=== PATIENT | male | born 1990 | race Caucasian/White ===

== ENCOUNTER 2019-01-19 10:32 | Emergency (ER) | payer SELFPAY ==
[2019-01-19] MEDS ORDERED: Ondansetron 4 MG/2 ML SDV IVPUSH ONE (10:48)
[2019-01-19] MEDS ORDERED: Sodium Chloride 0.9% 10 ML Syringe FLUSH PRN (10:48)
[2019-01-19] MEDS ORDERED: Ketorolac 30 MG/ML SDV IVPUSH ONE (10:50)
[2019-01-19] MEDS ORDERED: HYDROmorphone 0.5 MG/0.5 ML Syringe IVPUSH ONE ×2 (10:50→13:25)
[2019-01-19] MEDS ORDERED: Sodium Chloride 0.9% 1,000 ML IV SCH (11:00)
--- NOTE | 2019-01-19 11:23 | EDM.PDOC ---
ED HPI GENERAL MEDICAL PROBLEM - General Chief Complaint: Genitourinary Problem Stated Complaint: KIDNEY INFECTION,URINATING BLOOD Time Seen by Provider: 01/19/19 10:37 Source of Information: Reports: Patient History Limitations: Reports: No Limitations - History of Present Illness INITIAL COMMENTS - FREE TEXT/NARRATIVE: The patient presents with dysuria and flank pain. He says he had some dysuria about a week. He took some azo and that did help but now he has pain after urinating. He has orange urine now. He also has left flank pain for a couple days. He has nausea but no vomiting. He has chills but no fever. He has a history of UTIs. He has no cough, chest pain or shortness of breath. The pain does radiate to his left abdomen. Onset: Gradual Duration: Day(s): Location: Reports: Back Quality: Reports: Sharp Severity: Moderate Improves with: Reports: None Worsens with: Reports: None Associated Symptoms: Reports: Fever/Chills, Nausea/Vomiting. Denies: Chest Pain , Cough, Headaches, Shortness of Breath Left Flank Pain Score (Numeric/FACES): 8 - Related Data Allergies Allergy/AdvReac Type Severity Reaction Status Date / Time No Known Allergies Allergy Verified 01/19/19 10:41 Home Meds: Home Meds Cephalexin [Keflex] 500 mg PO BID #20 capsule 01/19/19 [Rx] Hydrocodone/Acetaminophen [Hydrocodon-Acetaminophen 5-325] 1 - 2 each PO Q6HR PRN #20 tablet 01/19/19 [Rx] Past Medical History - Past Health History Medical/Surgical History: Denies Medical/Surgical History Genitourinary History: Reports: UTI, Recurrent Social & Family History - Family History Family Medical History: Noncontributory - Tobacco Use Smoking Status *Q: Current Every Day Smoker Years of Tobacco use: 7 Packs/Tins Daily: 0.5 - Caffeine Use Caffeine Use: Reports: Coffee - Recreational Drug Use Recreational Drug Use: No ED ROS GENERAL - Review of Systems Review Of Systems: See Below Constitutional: Reports: Chills. Denies: Fever HEENT: Reports: No Symptoms Respiratory: Reports: No Symptoms Cardiovascular: Reports: No Symptoms Endocrine: Reports: No Symptoms GI/Abdominal: Reports: Abdominal Pain, Nausea. Denies: Vomiting ED EXAM, RENAL/ - Physical Exam Exam: See Below Exam Limited By: No Limitations General Appearance: Alert, No Apparent Distress Ears: Normal External Exam Nose: Normal Inspection Head: Atraumatic, Normocephalic Neck: Normal Inspection Respiratory/Chest: No Respiratory Distress, Lungs Clear, Normal Breath Sounds Cardiovascular: Regular Rate, Rhythm, No Edema, No Murmur GI/Abdominal: Soft, No Organomegaly, No Mass, Tender (Mild tenderness to the left abdomen) Back Exam: No: CVA Tenderness (L) Course - Vital Signs Last Recorded V/S: Last Vital Signs Temp 97.4 F 01/19/19 10:36 Pulse 80 01/19/19 10:36 Resp 16 01/19/19 10:36 BP 130/73 01/19/19 10:36 Pulse Ox 99 01/19/19 10:36 - Orders/Labs/Meds Orders: Active Orders 24 hr Category Date Time Status Peripheral IV Care [RC] . DIRECTED Care 01/19/19 10:49 Active CULTURE URINE [RM] Stat Lab 01/19/19 10:55 Received Sodium Chloride 0.9% [Normal Saline] 1,000 ml Med 01/19/19 11:00 Active IV ASDIRECTED Sodium Chloride 0.9% [Saline Flush] Med 01/19/19 10:48 Active 10 ml FLUSH ASDIRECTED PRN ED Antiemetic Medication Reflex [OM.PC] Stat Oth 01/19/19 10:48 Ordered Peripheral IV Insertion Adult [OM.PC] Stat Oth 01/19/19 10:48 Ordered Medication Orders Sodium Chloride (Normal Saline) 1,000 mls @ 125 mls/hr IV ASDIRECTED GINNA Last Admin: 01/19/19 11:00 Dose: 125 mls/hr Sodium Chloride (Saline Flush) 10 ml FLUSH ASDIRECTED PRN PRN Reason: Keep Vein Open Last Admin: 01/19/19 11:01 Dose: 10 ml Labs: Laboratory Tests 01/19/19 01/19/19 01/19/19 Range/Units 10:55 10:55 10:55 WBC 16.20 H (4.23-9.07) K/mm3 RBC 5.64 (4.63-6.08) M/mm3 Hgb 16.8 (13.7-17.5) gm/dl Hct 46.9 (40.1-51.0) % MCV 83.2 (79.0-92.2) fl MCH 29.8 (25.7-32.2) pg MCHC 35.8 H (32.2-35.5) g/dl RDW Std Deviation 37.6 (35.1-43.9) fL Plt Count 117 L (163-337) K/mm3 MPV 11.1 (9.4-12.3) fl Neut % (Auto) 82.7 H (34.0-67.9) % Lymph % (Auto) 8.7 L (21.8-53.1) % [place] % (Auto) 8.4 (5.3-12.2) % Eos % (Auto) 0.1 L (0.8-7.0) Baso % (Auto) 0.1 (0.1-1.2) % Neut # (Auto) 13.41 H (1.78-5.38) K/mm3 Lymph # (Auto) 1.41 (1.32-3.57) K/mm3 [place] # (Auto) 1.36 H (0.30-0.82) K/mm3 Eos # (Auto) 0.01 L (0.04-0.54) K/mm3 Baso # (Auto) 0.01 (0.01-0.08) K/mm3 Manual Slide Review Abnormal smear Sodium 138 (136-145) mEq/L Potassium 3.9 (3.5-5.1) mEq/L Chloride 100 (98-107) mEq/L Carbon Dioxide 29 (21-32) mEq/L Anion Gap 12.9 (5-15) BUN 11 (7-18) mg/dL Creatinine 1.2 (0.7-1.3) mg/dL Est Cr Clr Drug Dosing 87.22 mL/min Estimated GFR (MDRD) > 60 (>60) mL/min BUN/Creatinine Ratio 9.2 L (14-18) Glucose 98 (74-106) mg/dL Calcium 9.9 (8.5-10.1) mg/dL Total Bilirubin 0.8 (0.2-1.0) mg/dL AST 9 L (15-37) U/L ALT 23 (16-63) U/L Alkaline Phosphatase 51 (46-116) U/L Total Protein 8.1 (6.4-8.2) g/dl Albumin 4.5 (3.4-5.0) g/dl Globulin 3.6 gm/dL Albumin/Globulin Ratio 1.3 (1-2) Lipase 69 L (73-393) U/L Urine Color [place] H (Yellow) Urine Appearance Slt cloudy H (Clear) Urine pH 5.0 (5.0-8.0) Ur Specific [place] 1.010 (1.005-1.030) Urine Protein 3+ H (Negative) Urine Glucose (UA) 1+ H (Negative) Urine Ketones 1+ H (Negative) Urine Occult Blood 1+ H (Negative) Urine Nitrite Positive H (Negative) Urine Bilirubin 2+ H (Negative) Urine Urobilinogen >=8.0 H (0.2-1.0) Ur Leukocyte Esterase 3+ H (Negative) Urine RBC 5-10 H (0-5) /hpf Urine WBC 40-50 H (0-5) /hpf Ur Epithelial Cells 0-5 (0-5) /hpf Urine Bacteria Few (FEW) /hpf Urine Mucus Few (FEW) /hpf C trachomatis DNA (PCR) N gonorrhoeae DNA (PCR) 01/19/19 Range/Units 10:55 WBC (4.23-9.07) K/mm3 RBC (4.63-6.08) M/mm3 Hgb (13.7-17.5) gm/dl Hct (40.1-51.0) % MCV (79.0-92.2) fl MCH (25.7-32.2) pg MCHC (32.2-35.5) g/dl RDW Std Deviation (35.1-43.9) fL Plt Count (163-337) K/mm3 MPV (9.4-12.3) fl Neut % (Auto) (34.0-67.9) % Lymph % (Auto) (21.8-53.1) % [place] % (Auto) (5.3-12.2) % Eos % (Auto) (0.8-7.0) Baso % (Auto) (0.1-1.2) % Neut # (Auto) (1.78-5.38) K/mm3 Lymph # (Auto) (1.32-3.57) K/mm3 [place] # (Auto) (0.30-0.82) K/mm3 Eos # (Auto) (0.04-0.54) K/mm3 Baso # (Auto) (0.01-0.08) K/mm3 Manual Slide Review Sodium (136-145) mEq/L Potassium (3.5-5.1) mEq/L Chloride (98-107) mEq/L Carbon Dioxide (21-32) mEq/L Anion Gap (5-15) BUN (7-18) mg/dL Creatinine (0.7-1.3) mg/dL Est Cr Clr Drug Dosing mL/min Estimated GFR (MDRD) (>60) mL/min BUN/Creatinine Ratio (14-18) Glucose (74-106) mg/dL Calcium (8.5-10.1) mg/dL Total Bilirubin (0.2-1.0) mg/dL AST (15-37) U/L ALT (16-63) U/L Alkaline Phosphatase (46-116) U/L Total Protein (6.4-8.2) g/dl Albumin (3.4-5.0) g/dl Globulin gm/dL Albumin/Globulin Ratio (1-2) Lipase (73-393) U/L Urine Color (Yellow) Urine Appearance (Clear) Urine pH (5.0-8.0) Ur Specific [place] (1.005-1.030) Urine Protein (Negative) Urine Glucose (UA) (Negative) Urine Ketones (Negative) Urine Occult Blood (Negative) Urine Nitrite (Negative) Urine Bilirubin (Negative) Urine Urobilinogen (0.2-1.0) Ur Leukocyte Esterase (Negative) Urine RBC (0-5) /hpf Urine WBC (0-5) /hpf Ur Epithelial Cells (0-5) /hpf Urine Bacteria (FEW) /hpf Urine Mucus (FEW) /hpf C trachomatis DNA (PCR) Not detected N gonorrhoeae DNA (PCR) Not detected Meds: Medications Generic Name Dose Route Start Last Admin Trade Name Freq PRN Reason Stop Dose Admin Sodium Chloride 1,000 mls @ 125 mls/hr 01/19/19 11:00 01/19/19 11:00 Normal Saline IV 125 mls/hr ASDIRECTED GINNA Administration Sodium Chloride 10 ml 01/19/19 10:48 01/19/19 11:01 Saline Flush FLUSH 10 ml ASDIRECTED PRN Administration Keep Vein Open Discontinued Medications Generic Name Dose Route Start Last Admin Trade Name Quinn PRN Reason Stop Dose Admin Hydromorphone HCl 0.5 mg 01/19/19 10:50 01/19/19 11:01 Dilaudid IVPUSH 01/19/19 10:51 0.5 mg ONETIME ONE Administration Hydromorphone HCl 0.5 mg 01/19/19 13:25 01/19/19 13:33 Dilaudid IVPUSH 01/19/19 13:26 0.5 mg ONETIME ONE Administration Ceftriaxone Sodium 2 gm/ 100 mls @ 200 mls/hr 01/19/19 12:34 01/19/19 12:39 Sodium Chloride IV 01/19/19 13:03 200 mls/hr ONETIME ONE Administration Ketorolac Tromethamine 30 mg 01/19/19 10:50 01/19/19 11:00 Toradol IVPUSH 01/19/19 10:51 30 mg ONETIME ONE Administration Ondansetron HCl 4 mg 01/19/19 10:48 01/19/19 11:00 Zofran IVPUSH 01/19/19 10:49 4 mg ONETIME ONE Administration - Re-Assessments/Exams Free Text/Narrative Re-Assessment/Exam: 01/19/19 11:26 I ordered an IV NS at 125mL/hr, zofran 4mg IV, dilaudid, toradol, labs, UA and a CT of his abdomen and pelvis without contrast to look for a renal stone. 01/19/19 13:36 His WBC was elevated at 16.2. His CMP looks good. His UA shows a UTI. I have ordered a urine culture. His CT shows small nonobstructing calculi within both kidneys. No ureteral dilatation or ureteral stone is seen. Nothing acute is appreciated on noncontrast CT study of the abdomen and pelvis. I ordered rocephin 2 grams IV. Departure - Departure Time of Disposition: 13:40 Disposition: Home, Self-Care 01 Condition: Good Clinical Impression: UTI, Urinary tract infectious disease, Kidney stone, Pyelonephritis - Discharge Information *PRESCRIPTION DRUG MONITORING PROGRAM REVIEWED*: No *COPY OF PRESCRIPTION DRUG MONITORING REPORT IN PATIENT NIKKI: No Prescriptions: Cephalexin [Keflex] 500 mg PO BID #20 capsule Referrals: PCP,None [Primary Care Provider] - Ben Reyes MD [Ordering Only Provider] - 2 Weeks Be Estrada MD [Physician] - 1 Week Forms: ED Department Discharge, ED Return to Work/School Form Additional Instructions: Drink plenty of fluids. Take the keflex 2 times per day for 10 days. Take motrin or tylenol for pain. If that does not help, try the hydrocodone. Please return if you are worse. Follow up with Dr Estrada within a week. Follow up with Dr Reyes the urologist in a couple weeks. Please see someone if you have urinary symptoms. - My Orders Last 24 Hours: My Active Orders 01/19/19 10:48 Sodium Chloride 0.9% [Saline Flush] 10 ml FLUSH ASDIRECTED PRN ED Antiemetic Medication Reflex [OM.PC] Stat Peripheral IV Insertion Adult [OM.PC] Stat 01/19/19 10:49 Peripheral IV Care [RC] . DIRECTED 01/19/19 10:55 CULTURE URINE [RM] Stat 01/19/19 11:00 Sodium Chloride 0.9% [Normal Saline] 1,000 ml IV ASDIRECTED - Assessment/Plan Last 24 Hours: My Active Orders 01/19/19 10:48 Sodium Chloride 0.9% [Saline Flush] 10 ml FLUSH ASDIRECTED PRN ED Antiemetic Medication Reflex [OM.PC] Stat Peripheral IV Insertion Adult [OM.PC] Stat 01/19/19 10:49 Peripheral IV Care [RC] . DIRECTED 01/19/19 10:55 CULTURE URINE [RM] Stat 01/19/19 11:00 Sodium Chloride 0.9% [Normal Saline] 1,000 ml IV ASDIRECTED
--- NOTE | 2019-01-19 11:39 | CT ---
CT abdomen and pelvis Technique: Multiple axial sections were obtained from above the dome of the diaphragm inferiorly through the pubic symphysis. Intravenous and oral contrast not utilized. Study has been performed as a ureteral stone protocol. Comparison: No prior abdominal imaging. Findings: Several small calcifications are scattered within both kidneys compatible with minimal nonobstructing calculi. No ureteral calculi are seen. Visualized lung bases showed nothing acute. Noncontrast appearance of the liver and spleen show no discrete abnormality. Adrenal glands show no nodule. Pancreas is within normal limits. Gallbladder contains no calcified gallstones. Aorta shows no aneurysm. No retroperitoneal adenopathy or mesenteric abnormalities are seen. Appendix is seen which is normal in size. No pelvic mass or adenopathy is identified. Impression: 1. Small nonobstructing calculi within both kidneys. 2. No ureteral dilatation or ureteral stone is seen. 3. Nothing acute is appreciated on noncontrast CT study of the abdomen and pelvis. Diagnostic code #2
[2019-01-19] MEDS ORDERED: cefTRIAXone 2 GM in Sodium Chloride 0.9% 100 ML IV ONE (12:34)
[2019-01-19 12:42] LABS: C. TRACHOMATIS BY PCR NOT DETECTED; N. GONORRHOEAE BY PCR NOT DETECTED
== END 2019-01-19 13:50 | disposition home or self-care (01) ==
LOC: JD.ED 10:32
DX: N20.0 Calculus of kidney (principal); F17.200 Nicotine dependence, unspecified, uncomplicated
CPT/HCPCS: 36415; 74176; 80053; 81001; 83690; 85025; 87086; 87088; 87186; 87491; 87591; 96365; 96375; 96376; 99284; J0696; J1170; J1885; J2405; J7030; J7040

== ENCOUNTER 2019-01-20 07:46 | Inpatient (IN) | payer OTHER ==
[2019-01-20] MEDS ORDERED: Ondansetron 4 MG/2 ML SDV IVPUSH ONE (08:06)
[2019-01-20] MEDS ORDERED: Lactated Ringers 1,000 ML IV ONE ×3 (08:06→10:12)
[2019-01-20] MEDS ORDERED: HYDROmorphone 0.5 MG/0.5 ML Syringe IVPUSH ONE ×4 (08:06→20:31)
--- NOTE | 2019-01-20 08:06 | EDM.PDOC ---
ED HPI GENERAL MEDICAL PROBLEM - General Chief Complaint: Abdominal Pain Stated Complaint: ABDOMINAL AND KIDNEY PAIN NOT BETTER Time Seen by Provider: 01/20/19 08:01 - History of Present Illness INITIAL COMMENTS - FREE TEXT/NARRATIVE: 28-year-old male presents emergency room with worsening flank pain and is now moved into the right, left much worse. And he has some chest discomfort after a significant single emesis episode where he had some blood-streaked vomit. Patient was seen here yesterday diagnosed with a left-sided pyelonephritis he received 2 g of Rocephin and was started on oral Keflex. The patient states he is taking Keflex. The patient has progressively been getting worse lots of chills and low-grade fevers. The patient developed some chest discomfort after vomiting. Otherwise his breathing okay. Chest discomfort seems to improve with deep breathing. Left Flank Pain Score (Numeric/FACES): 10 Right Flank Pain Score (Numeric/FACES): 6 Abdomen Pain Score (Numeric/FACES): 10 - Related Data Allergies Allergy/AdvReac Type Severity Reaction Status Date / Time No Known Allergies Allergy Verified 01/20/19 08:01 Home Meds: Home Meds Cephalexin [Keflex] 500 mg PO BID #20 capsule 01/19/19 [Rx] Hydrocodone/Acetaminophen [Hydrocodon-Acetaminophen 5-325] 1 - 2 each PO Q6HR PRN #20 tablet 01/19/19 [Rx] Ibuprofen 400 - 600 mg PO Q6H PRN 01/20/19 [History] Past Medical History - Past Health History Medical/Surgical History: Denies Medical/Surgical History Genitourinary History: Reports: UTI, Recurrent Social & Family History - Family History Family Medical History: Noncontributory - Caffeine Use Caffeine Use: Reports: Coffee ED ROS GENERAL - Review of Systems Review Of Systems: See Below Constitutional: Reports: Fever, Chills HEENT: Reports: No Symptoms Respiratory: Reports: Pleuritic Chest Pain Cardiovascular: Reports: No Symptoms Endocrine: Reports: No Symptoms GI/Abdominal: Reports: Abdominal Pain, Nausea, Vomiting. Denies: Constipation, Diarrhea : Reports: Dysuria, Flank Pain, Frequency, Urgency Skin: Reports: No Symptoms Neurological: Reports: No Symptoms Psychiatric: Reports: No Symptoms ED EXAM, GI/ABD - Physical Exam Exam: See Below Exam Limited By: No Limitations General Appearance: Alert, Mild Distress (He is uncomfortable and nauseated). No: No Apparent Distress Head: Atraumatic, Normocephalic Neck: Normal Inspection, Supple, Non-Tender, Full Range of Motion. No: Lymphadenopathy (L), Lymphadenopathy (R) Respiratory/Chest: No Respiratory Distress, Lungs Clear, Normal Breath Sounds Cardiovascular: Regular Rate, Rhythm, No Edema, No Murmur GI/Abdominal Exam: Normal Bowel Sounds, Soft, Other (Some generalized abdominal discomfort worse in the left compared to the right no rigidity rebound or guarding noted). No: Non-Tender, Guarding, Rebound Back Exam: CVA Tenderness (L) (Moderate), CVA Tenderness (R) (Mild) Extremities: Normal Inspection, No Pedal Edema Neurological: Alert, Oriented, Normal Cognition EKG INTERPRETATION EKG Date: 01/20/19 Rhythm: Other (Sinus tach rate 104) [place]: Normal P-Wave: Present QRS: Normal ST-T: Normal QT: Normal Comparison: NA - No Prior EKG EKG Interpretation Comments: Mild sinus tachycardia otherwise normal EKG Course - Vital Signs Last Recorded V/S: Last Vital Signs Temp 38.5 C H 01/20/19 10:17 Pulse 98 01/20/19 10:17 Resp 16 01/20/19 10:17 BP 108/82 01/20/19 10:17 Pulse Ox 94 L 01/20/19 10:17 - Orders/Labs/Meds Orders: Active Orders 24 hr Category Date Time Status EKG Documentation Completion [RC] STAT Care 01/20/19 08:10 Active CULTURE BLOOD [BC] Stat Lab 01/20/19 08:29 Received CULTURE BLOOD [BC] Stat Lab 01/20/19 08:39 Received CULTURE URINE [RM] Stat Lab 01/20/19 09:18 Received Lactated Ringers [Ringers, Lactated] 1,000 ml Med 01/20/19 10:12 Active IV .BOLUS Lactated Ringers [Ringers, Lactated] 1,000 ml Med 01/20/19 09:40 Active IV ONETIME Blood Culture x2 Reflex Set [OM.PC] Stat Oth 01/20/19 08:08 Ordered Medication Orders Lactated Ringer's (Ringers, Lactated) 1,000 mls @ 999 mls/hr IV ONETIME ONE Stop: 01/20/19 10:40 Lactated Ringer's (Ringers, Lactated) 1,000 mls @ 999 mls/hr IV .BOLUS ONE Stop: 01/20/19 11:12 Labs: Laboratory Tests 01/20/19 01/20/19 01/20/19 Range/Units 08:29 08:29 08:39 WBC 14.74 H (4.23-9.07) K/mm3 RBC 5.32 (4.63-6.08) M/mm3 Hgb 15.8 (13.7-17.5) gm/dl Hct 43.8 (40.1-51.0) % MCV 82.3 (79.0-92.2) fl MCH 29.7 (25.7-32.2) pg MCHC 36.1 H (32.2-35.5) g/dl RDW Std Deviation 37.1 (35.1-43.9) fL Plt Count 108 L (163-337) K/mm3 MPV 11.2 (9.4-12.3) fl Neutrophils % (Manual) 82 H (40-60) % Band Neutrophils % 0 (0-10) % Lymphocytes % (Manual) 11 L (20-40) % Atypical Lymphs % 0 % Monocytes % (Manual) 7 (2-10) % Eosinophils % (Manual) 0 L (0.8-7.0) % Basophils % (Manual) 0 L (0.2-1.2) Platelet Estimate Adequate RBC Morph Comment Normal Sodium 134 L (136-145) mEq/L Potassium 3.9 (3.5-5.1) mEq/L Chloride 99 (98-107) mEq/L Carbon Dioxide 25 (21-32) mEq/L Anion Gap 13.9 (5-15) BUN 14 (7-18) mg/dL Creatinine 1.2 (0.7-1.3) mg/dL Est Cr Clr Drug Dosing 90.25 mL/min Estimated GFR (MDRD) > 60 (>60) mL/min BUN/Creatinine Ratio 11.7 L (14-18) Glucose 110 H (74-106) mg/dL Lactic Acid 2.1 H (0.4-2.0) mmol/L Calcium 9.6 (8.5-10.1) mg/dL Total Bilirubin 0.8 (0.2-1.0) mg/dL AST 19 (15-37) U/L ALT 22 (16-63) U/L Alkaline Phosphatase 49 (46-116) U/L Total Protein 7.6 (6.4-8.2) g/dl Albumin 3.9 (3.4-5.0) g/dl Globulin 3.7 gm/dL Albumin/Globulin Ratio 1.1 (1-2) Urine Color (Yellow) Urine Appearance (Clear) Urine pH (5.0-8.0) Ur Specific [place] (1.005-1.030) Urine Protein (Negative) Urine Glucose (UA) (Negative) Urine Ketones (Negative) Urine Occult Blood (Negative) Urine Nitrite (Negative) Urine Bilirubin (Negative) Urine Urobilinogen (0.2-1.0) Ur Leukocyte Esterase (Negative) Urine RBC (0-5) /hpf Urine WBC (0-5) /hpf Ur Squamous Epith Cells (0-5) /hpf Urine Bacteria (FEW) /hpf Urine Mucus (FEW) /hpf 01/20/19 Range/Units 09:16 WBC (4.23-9.07) K/mm3 RBC (4.63-6.08) M/mm3 Hgb (13.7-17.5) gm/dl Hct (40.1-51.0) % MCV (79.0-92.2) fl MCH (25.7-32.2) pg MCHC (32.2-35.5) g/dl RDW Std Deviation (35.1-43.9) fL Plt Count (163-337) K/mm3 MPV (9.4-12.3) fl Neutrophils % (Manual) (40-60) % Band Neutrophils % (0-10) % Lymphocytes % (Manual) (20-40) % Atypical Lymphs % % Monocytes % (Manual) (2-10) % Eosinophils % (Manual) (0.8-7.0) % Basophils % (Manual) (0.2-1.2) Platelet Estimate RBC Morph Comment Sodium (136-145) mEq/L Potassium (3.5-5.1) mEq/L Chloride (98-107) mEq/L Carbon Dioxide (21-32) mEq/L Anion Gap (5-15) BUN (7-18) mg/dL Creatinine (0.7-1.3) mg/dL Est Cr Clr Drug Dosing mL/min Estimated GFR (MDRD) (>60) mL/min BUN/Creatinine Ratio (14-18) Glucose (74-106) mg/dL Lactic Acid (0.4-2.0) mmol/L Calcium (8.5-10.1) mg/dL Total Bilirubin (0.2-1.0) mg/dL AST (15-37) U/L ALT (16-63) U/L Alkaline Phosphatase (46-116) U/L Total Protein (6.4-8.2) g/dl Albumin (3.4-5.0) g/dl Globulin gm/dL Albumin/Globulin Ratio (1-2) Urine Color Yellow (Yellow) Urine Appearance Clear (Clear) Urine pH 8.5 H (5.0-8.0) Ur Specific [place] 1.015 (1.005-1.030) Urine Protein 2+ H (Negative) Urine Glucose (UA) Negative (Negative) Urine Ketones 2+ H (Negative) Urine Occult Blood 1+ H (Negative) Urine Nitrite Negative (Negative) Urine Bilirubin Negative (Negative) Urine Urobilinogen 2.0 H (0.2-1.0) Ur Leukocyte Esterase Trace H (Negative) Urine RBC 10-20 H (0-5) /hpf Urine WBC 5-10 H (0-5) /hpf Ur Squamous Epith Cells 0-5 (0-5) /hpf Urine Bacteria Few (FEW) /hpf Urine Mucus Few (FEW) /hpf Meds: Medications Generic Name Dose Route Start Last Admin Trade Name Freq PRN Reason Stop Dose Admin Lactated Ringer's 1,000 mls @ 999 mls/hr 01/20/19 09:40 Ringers, Lactated IV 01/20/19 10:40 ONETIME ONE Lactated Ringer's 1,000 mls @ 999 mls/hr 01/20/19 10:12 Ringers, Lactated IV 01/20/19 11:12 .BOLUS ONE Discontinued Medications Generic Name Dose Route Start Last Admin Trade Name Freq PRN Reason Stop Dose Admin Hydromorphone HCl 0.5 mg 01/20/19 08:06 01/20/19 08:31 Dilaudid IVPUSH 01/20/19 08:07 0.5 mg ONETIME ONE Administration Lactated Ringer's 1,000 mls @ 999 mls/hr 01/20/19 08:06 01/20/19 08:35 Ringers, Lactated IV 01/20/19 09:06 999 mls/hr .BOLUS ONE Administration Levofloxacin/Dextrose 750 mg/ 150 mls @ 100 mls/hr 01/20/19 08:11 01/20/19 09 :19 Premix IV 01/20/19 09:40 100 mls/hr ONETIME ONE Administration Ondansetron HCl 4 mg 01/20/19 08:06 01/20/19 08:29 Zofran IVPUSH 01/20/19 08:07 4 mg ONETIME ONE Administration - Re-Assessments/Exams Free Text/Narrative Re-Assessment/Exam: 01/20/19 09:09 This pain is down to a 4 after receiving some Dilaudid his nausea starting to improve after Zofran still awaiting the urinalysis Free Text/Narrative Re-Assessment/Exam: 01/20/19 10:12 Urinalysis may indicate that it is a little bit better. White count is slightly down. The is concerned that his gallbladder and/or appendix has something wrong with it. I did offer CT evaluation this is declined. I have recommended hospital observation to make sure he continues to improve so far this is been declined but they are considering this option his pulse is still little fast at 101-100 and to give a third liter of LR. If we discharge him home we'll start him on Levaquin. Give him something for nausea. For pain control he sustained the hydrocodone take one or 2 every 6 hours as prescribed thus far is only taken one at a time. 01/20/19 10:34 Nick another discussion about the situation with the patient and his he is now consenting to be placed in the hospital he would like to hold off on the CT.. Case discussed with Dr. Vicente who will evaluate the patient Departure - Departure Time of Disposition: 10:37 Disposition: Refer to Observation Clinical Impression: Pyelonephritis, acute, Abdominal pain in male - Discharge Information Referrals: PCP,None [Primary Care Provider] - Forms: ED Department Discharge - My Orders Last 24 Hours: My Active Orders 01/20/19 08:08 Blood Culture x2 Reflex Set [OM.PC] Stat 01/20/19 08:10 EKG Documentation Completion [RC] STAT 01/20/19 08:29 CULTURE BLOOD [BC] Stat 01/20/19 08:39 CULTURE BLOOD [BC] Stat 01/20/19 09:18 CULTURE URINE [RM] Stat 01/20/19 09:40 Lactated Ringers [Ringers, Lactated] 1,000 ml IV ONETIME 01/20/19 10:12 Lactated Ringers [Ringers, Lactated] 1,000 ml IV .BOLUS - Assessment/Plan Last 24 Hours: My Active Orders 01/20/19 08:08 Blood Culture x2 Reflex Set [OM.PC] Stat 01/20/19 08:10 EKG Documentation Completion [RC] STAT 01/20/19 08:29 CULTURE BLOOD [BC] Stat 01/20/19 08:39 CULTURE BLOOD [BC] Stat 01/20/19 09:18 CULTURE URINE [RM] Stat 01/20/19 09:40 Lactated Ringers [Ringers, Lactated] 1,000 ml IV ONETIME 01/20/19 10:12 Lactated Ringers [Ringers, Lactated] 1,000 ml IV .BOLUS
[2019-01-20] MEDS ORDERED: Levofloxacin/Dextrose 5%-Water 750 MG in Premix Bag 1 BAG IV ONE (08:11)
--- NOTE | 2019-01-20 08:57 | CR ---
Chest: Portable view of the chest was obtained. Comparison: No prior chest imaging. Heart size and mediastinum are within normal limits. Lungs are clear with no acute parenchymal change. Bony structures are grossly intact. Impression: 1. Nothing acute is appreciated on portable chest x-ray. Diagnostic code #1
[2019-01-20] MEDS ORDERED: Acetaminophen 325 MG Tab PO ONE (11:10)
[2019-01-20] MEDS ORDERED: Morphine 2 MG/ML Syringe IVPUSH PRN ×2 (14:28)
[2019-01-20] MEDS ORDERED: Lactated Ringers 1,000 ML IV SCH (14:30)
--- NOTE | 2019-01-20 14:59 | PCM.HP.2 ---
H&P History of Present Illness - General Date of Service: 01/20/19 Admit Problem/Dx: Admission Diagnosis/Problem Admission Diagnosis/Problem Sepsis - History of Present Illness Initial Comments - Free Text/Narative: This is a 28 year old male with no relevant past medical history who came to the emergency department complaining of worsening chills, fever, abdominal pain. Respiratory patient she came to the emergency department on 01/20/19 complaining of hematuria for 3 days as well as urinary symptoms for approximately one week. Associated symptoms are nausea, vomiting, decreased appetite, worsening abdominal pain, malaise, fatigue, fevers quantified at 101.3. Left Flank Pain Score (Numeric/FACES): 7 Right Flank Pain Score (Numeric/FACES): 0 Abdomen Pain Score (Numeric/FACES): 5 - Related Data Allergies/Adverse Reactions: Allergies Allergy/AdvReac Type Severity Reaction Status Date / Time No Known Allergies Allergy Verified 01/20/19 08:01 Home Medications: Home Meds Cephalexin [Keflex] 500 mg PO BID #20 capsule 01/19/19 [Rx] Hydrocodone/Acetaminophen [Hydrocodon-Acetaminophen 5-325] 1 - 2 each PO Q6HR PRN #20 tablet 01/19/19 [Rx] Ibuprofen 400 - 600 mg PO Q6H PRN 01/20/19 [History] Past Medical History - Past Health History Medical/Surgical History: Denies Medical/Surgical History Genitourinary History: Reports: UTI, Recurrent Other Genitourinary History: frequent bladder infections. Musculoskeletal History: Reports: Fracture Neurological History: Reports: Headaches, Chronic - Infectious Disease History Infectious Disease History: Reports: Chicken Pox Social & Family History - Family History Family Medical History: Noncontributory - Tobacco Use Smoking Status *Q: Current Every Day Smoker Years of Tobacco use: 9 Packs/Tins Daily: 0.5 Second Hand Smoke Exposure: Yes - Caffeine Use Caffeine Use: Reports: Coffee - Recreational Drug Use Recreational Drug Use: No H&P Review of Systems - Review of Systems: Review Of Systems: See Below General: Reports: Fever, Chills, Malaise, Weakness, Fatigue, Night Sweats, Diaphoresis, Decreased Appetite HEENT: Reports: No Symptoms, Headaches. Denies: Dysphasia, Ear Pain, Eye Pain Pulmonary: Reports: No Symptoms. Denies: Shortness of Breath, Wheezing, Pleuritic Chest Pain, Cough Cardiovascular: Reports: Palpitations, Lightheadedness. Denies: Chest Pain, Dyspnea on Exertion, Orthopnea, PND, Edema, Syncope Gastrointestinal: Reports: Abdominal Pain, Anorexia, Nausea, Vomiting Genitourinary: Reports: Frequency, Pain, Urgency, Hematuria, Flank Pain Musculoskeletal: Reports: Back Pain. Denies: Neck Pain, Shoulder Pain, Arm Pain , Hand Pain, Leg Pain, Muscle Pain, Muscle Stiffness Skin: Reports: No Symptoms Psychiatric: Reports: No Symptoms, Anxiety. Denies: Depression Neurological: Reports: No Symptoms, Headache. Denies: Confusion, Dizziness, Numbness, Paresthesia, Seizure, Syncope, Tingling Hematologic/Lymphatic: Reports: No Symptoms Immunologic: Reports: No Symptoms Exam - Exam Exam: See Below - Vital Signs Vital Signs: Last Vital Signs Temp 38.1 C 01/20/19 11:26 Pulse 96 01/20/19 10:55 Resp 16 01/20/19 10:55 BP 107/60 01/20/19 10:55 Pulse Ox 96 01/20/19 10:55 Weight: 72.575 kg - Exam General: Alert, Oriented, Mild Distress HEENT: Conjunctiva Clear, EOMI, Hearing Intact. No: Mucosa Moist & [place] Neck: Supple, Trachea Midline Lungs: Clear to Auscultation, Normal Respiratory Effort. No: Crackles, Rales, Rhonchi, Wheezing Cardiovascular: Regular Rate, Regular Rhythm, Tachycardia GI/Abdominal Exam: Normal Bowel Sounds, Soft, No Distention, No Mass Back Exam: Normal Inspection, CVA Tenderness (L) Extremities: Normal Inspection, No Pedal Edema, Normal Capillary Refill Skin: Warm, Moist Neuro Extensive - Mental Status: Alert, Oriented x3, Normal Mood/Affect Psychiatric: Alert - Patient Data Lab Results Last 24 hrs: Laboratory Results - last 24 hr 01/20/19 01/20/19 01/20/19 Range/Units 08:29 08:29 08:39 WBC 14.74 H (4.23-9.07) K/mm3 RBC 5.32 (4.63-6.08) M/mm3 Hgb 15.8 (13.7-17.5) gm/dl Hct 43.8 (40.1-51.0) % MCV 82.3 (79.0-92.2) fl MCH 29.7 (25.7-32.2) pg MCHC 36.1 H (32.2-35.5) g/dl RDW Std Deviation 37.1 (35.1-43.9) fL Plt Count 108 L (163-337) K/mm3 MPV 11.2 (9.4-12.3) fl Neutrophils % (Manual) 82 H (40-60) % Band Neutrophils % 0 (0-10) % Lymphocytes % (Manual) 11 L (20-40) % Atypical Lymphs % 0 % Monocytes % (Manual) 7 (2-10) % Eosinophils % (Manual) 0 L (0.8-7.0) % Basophils % (Manual) 0 L (0.2-1.2) Platelet Estimate Adequate RBC Morph Comment Normal Sodium 134 L (136-145) mEq/L Potassium 3.9 (3.5-5.1) mEq/L Chloride 99 (98-107) mEq/L Carbon Dioxide 25 (21-32) mEq/L Anion Gap 13.9 (5-15) BUN 14 (7-18) mg/dL Creatinine 1.2 (0.7-1.3) mg/dL Est Cr Clr Drug Dosing 90.25 mL/min Estimated GFR (MDRD) > 60 (>60) mL/min BUN/Creatinine Ratio 11.7 L (14-18) Glucose 110 H (74-106) mg/dL Lactic Acid 2.1 H (0.4-2.0) mmol/L Calcium 9.6 (8.5-10.1) mg/dL Total Bilirubin 0.8 (0.2-1.0) mg/dL AST 19 (15-37) U/L ALT 22 (16-63) U/L Alkaline Phosphatase 49 (46-116) U/L Total Protein 7.6 (6.4-8.2) g/dl Albumin 3.9 (3.4-5.0) g/dl Globulin 3.7 gm/dL Albumin/Globulin Ratio 1.1 (1-2) Urine Color (Yellow) Urine Appearance (Clear) Urine pH (5.0-8.0) Ur Specific [place] (1.005-1.030) Urine Protein (Negative) Urine Glucose (UA) (Negative) Urine Ketones (Negative) Urine Occult Blood (Negative) Urine Nitrite (Negative) Urine Bilirubin (Negative) Urine Urobilinogen (0.2-1.0) Ur Leukocyte Esterase (Negative) Urine RBC (0-5) /hpf Urine WBC (0-5) /hpf Ur Squamous Epith Cells (0-5) /hpf Urine Bacteria (FEW) /hpf Urine Mucus (FEW) /hpf 01/20/19 Range/Units 09:16 WBC (4.23-9.07) K/mm3 RBC (4.63-6.08) M/mm3 Hgb (13.7-17.5) gm/dl Hct (40.1-51.0) % MCV (79.0-92.2) fl MCH (25.7-32.2) pg MCHC (32.2-35.5) g/dl RDW Std Deviation (35.1-43.9) fL Plt Count (163-337) K/mm3 MPV (9.4-12.3) fl Neutrophils % (Manual) (40-60) % Band Neutrophils % (0-10) % Lymphocytes % (Manual) (20-40) % Atypical Lymphs % % Monocytes % (Manual) (2-10) % Eosinophils % (Manual) (0.8-7.0) % Basophils % (Manual) (0.2-1.2) Platelet Estimate RBC Morph Comment Sodium (136-145) mEq/L Potassium (3.5-5.1) mEq/L Chloride (98-107) mEq/L Carbon Dioxide (21-32) mEq/L Anion Gap (5-15) BUN (7-18) mg/dL Creatinine (0.7-1.3) mg/dL Est Cr Clr Drug Dosing mL/min Estimated GFR (MDRD) (>60) mL/min BUN/Creatinine Ratio (14-18) Glucose (74-106) mg/dL Lactic Acid (0.4-2.0) mmol/L Calcium (8.5-10.1) mg/dL Total Bilirubin (0.2-1.0) mg/dL AST (15-37) U/L ALT (16-63) U/L Alkaline Phosphatase (46-116) U/L Total Protein (6.4-8.2) g/dl Albumin (3.4-5.0) g/dl Globulin gm/dL Albumin/Globulin Ratio (1-2) Urine Color Yellow (Yellow) Urine Appearance Clear (Clear) Urine pH 8.5 H (5.0-8.0) Ur Specific [place] 1.015 (1.005-1.030) Urine Protein 2+ H (Negative) Urine Glucose (UA) Negative (Negative) Urine Ketones 2+ H (Negative) Urine Occult Blood 1+ H (Negative) Urine Nitrite Negative (Negative) Urine Bilirubin Negative (Negative) Urine Urobilinogen 2.0 H (0.2-1.0) Ur Leukocyte Esterase Trace H (Negative) Urine RBC 10-20 H (0-5) /hpf Urine WBC 5-10 H (0-5) /hpf Ur Squamous Epith Cells 0-5 (0-5) /hpf Urine Bacteria Few (FEW) /hpf Urine Mucus Few (FEW) /hpf Result Diagrams: 01/21/19 04:24 01/21/19 04:24 - Problem List (1) Sepsis SNOMED Code(s): 02093277 ICD Code: A41.9 - SEPSIS, UNSPECIFIED ORGANISM Status: Acute Priority: High Current Visit: Yes Qualifiers: Sepsis acute organ dysfunction status: without acute organ dysfunction (2) Pyelonephritis, acute SNOMED Code(s): 92151433 ICD Code: N10 - ACUTE PYELONEPHRITIS Status: Acute Current Visit: Yes Problem List Initiated/Reviewed/Updated: Yes Assessment/Plan Comment:: This is a 28 year old male without any past medical history who came to the ED complaining of worsening abdominal pain and fever for 24 hours. Sepsis 2/2 Pyelonephritis Came to he ED 01/19 and was given keflex for UTI Symptoms worsened and temperature peaked at 101.3 at home--> reconsulted Hematuria x 3 days prior to consultation Lactic acid 2.6 + CVA tenderness Recurrent UTIs PLAN - Aggressive IV fluid rehydration - Repeat lactic acid - BL blood cultures - Urine culture - Start Rocephin - Morphine for pain management - Strain urine CODE STATUS: FULL CODE PROPHYLAXIS - DVT: Enoxaparin - GI: not indicated DISPOSITION: Discharge home once cultures results are in and patient is afebrile for 48 hours. - Mortality Measure Prognosis:: Good
[2019-01-20] MEDS ORDERED: cefTRIAXone 1 GM in Sodium Chloride 0.9% 100 ML IV SCH (15:30)
[2019-01-20] MEDS: cefTRIAXone 1 GM in Sodium Chloride 0.9% 100 ML IV SCH (15:38)
[2019-01-20] MEDS: Lactated Ringers 1,000 ML IV SCH ×2 (16:14→20:58)
[2019-01-20] MEDS ORDERED: Sodium Chloride 0.9% 10 ML Syringe FLUSH SCH (16:15)
[2019-01-20] MEDS: Ondansetron 4 MG/2 ML SDV IV PRN (18:35)
[2019-01-20] MEDS ORDERED: Morphine 4 MG/ML Syringe IVPUSH ONE (19:30)
[2019-01-20] MEDS ORDERED: Morphine 2 MG/ML Syringe ONE (19:41)
[2019-01-20] MEDS: Nicotine 14 MG/24 Hr Patch TRDERM SCH (19:48)
[2019-01-20] MEDS ORDERED: HYDROmorphone 0.5 MG/0.5 ML Syringe IVPUSH PRN (20:32)
[2019-01-20] MEDS: Enoxaparin 40 MG/0.4 ML Syringe SUBCUT SCH (20:58)
[2019-01-21] MEDS: Lactated Ringers 1,000 ML IV SCH ×3 (01:16→19:30)
[2019-01-21] MEDS: Ondansetron 4 MG/2 ML SDV IV PRN ×3 (01:17→17:31)
[2019-01-21] MEDS: HYDROmorphone 0.5 MG/0.5 ML Syringe IVPUSH PRN ×5 (01:17→17:39)
--- NOTE | 2019-01-21 07:43 | PCM.PN ---
- General Info Date of Service: 01/21/19 Admission Dx/Problem (Free Text): Patient examined by me at bedside As per nursing pain control is improved, tolerated diet, is ambulating. As per patient he is feeling much better, new oral pain medications are working great, no more hematuria, no BM yet but hasn't eaten much. Functional Status: Reports: Pain Controlled - Review of Systems General: Reports: Weakness, Fatigue, Malaise, Chills, Night Sweats. Denies: Appetite HEENT: Reports: No Symptoms Pulmonary: Denies: Shortness of Breath, Cough, Sputum Cardiovascular: Denies: Chest Pain, Palpitations, Dyspnea on Exertion, Orthopnea , PND Gastrointestinal: Reports: Abdominal Pain, Decreased Appetite Genitourinary: Reports: Frequency, Pain, Urgency. Denies: Burning Musculoskeletal: Reports: Back Pain. Denies: Neck Pain, Leg Pain, Foot Pain Skin: Reports: Diaphoresis Neurological: Reports: No Symptoms Psychiatric: Reports: No Symptoms - Patient Data Vitals - Most Recent: Last Vital Signs Temp 37.1 C 01/21/19 05:19 Pulse 82 01/21/19 05:19 Resp 13 01/21/19 05:19 BP 129/75 01/21/19 05:19 Pulse Ox 98 01/21/19 05:19 Weight - Most Recent: 72.575 kg I&O - Last 24 Hours: Intake & Output 01/20/19 01/21/19 01/21/19 22:59 06:59 14:59 Intake Total 3400 Output Total 2250 Balance 1150 Lab Results Last 24 Hours: Laboratory Results - last 24 hr 01/20/19 01/20/19 01/20/19 Range/Units 08:29 08:29 08:39 WBC 14.74 H (4.23-9.07) K/mm3 RBC 5.32 (4.63-6.08) M/mm3 Hgb 15.8 (13.7-17.5) gm/dl Hct 43.8 (40.1-51.0) % MCV 82.3 (79.0-92.2) fl MCH 29.7 (25.7-32.2) pg MCHC 36.1 H (32.2-35.5) g/dl RDW Std Deviation 37.1 (35.1-43.9) fL Plt Count 108 L (163-337) K/mm3 MPV 11.2 (9.4-12.3) fl Neutrophils % (Manual) 82 H (40-60) % Band Neutrophils % 0 (0-10) % Lymphocytes % (Manual) 11 L (20-40) % Atypical Lymphs % 0 % Monocytes % (Manual) 7 (2-10) % Eosinophils % (Manual) 0 L (0.8-7.0) % Basophils % (Manual) 0 L (0.2-1.2) Platelet Estimate Adequate RBC Morph Comment Normal Sodium 134 L (136-145) mEq/L Potassium 3.9 (3.5-5.1) mEq/L Chloride 99 (98-107) mEq/L Carbon Dioxide 25 (21-32) mEq/L Anion Gap 13.9 (5-15) BUN 14 (7-18) mg/dL Creatinine 1.2 (0.7-1.3) mg/dL Est Cr Clr Drug Dosing 90.25 mL/min Estimated GFR (MDRD) > 60 (>60) mL/min BUN/Creatinine Ratio 11.7 L (14-18) Glucose 110 H (74-106) mg/dL Lactic Acid 2.1 H (0.4-2.0) mmol/L Calcium 9.6 (8.5-10.1) mg/dL Phosphorus (2.6-4.7) mg/dL Magnesium (1.8-2.4) mg/dl Total Bilirubin 0.8 (0.2-1.0) mg/dL AST 19 (15-37) U/L ALT 22 (16-63) U/L Alkaline Phosphatase 49 (46-116) U/L Total Protein 7.6 (6.4-8.2) g/dl Albumin 3.9 (3.4-5.0) g/dl Globulin 3.7 gm/dL Albumin/Globulin Ratio 1.1 (1-2) Urine Color (Yellow) Urine Appearance (Clear) Urine pH (5.0-8.0) Ur Specific [place] (1.005-1.030) Urine Protein (Negative) Urine Glucose (UA) (Negative) Urine Ketones (Negative) Urine Occult Blood (Negative) Urine Nitrite (Negative) Urine Bilirubin (Negative) Urine Urobilinogen (0.2-1.0) Ur Leukocyte Esterase (Negative) Urine RBC (0-5) /hpf Urine WBC (0-5) /hpf Ur Squamous Epith Cells (0-5) /hpf Urine Bacteria (FEW) /hpf Urine Mucus (FEW) /hpf 01/20/19 01/20/19 01/21/19 Range/Units 09:16 14:55 04:24 WBC 11.09 H (4.23-9.07) K/mm3 RBC 4.25 L (4.63-6.08) M/mm3 Hgb 12.5 L D (13.7-17.5) gm/dl Hct 36.0 L (40.1-51.0) % MCV 84.7 (79.0-92.2) fl MCH 29.4 (25.7-32.2) pg MCHC 34.7 (32.2-35.5) g/dl RDW Std Deviation 36.2 (35.1-43.9) fL Plt Count 80 L (163-337) K/mm3 MPV 10.8 (9.4-12.3) fl Neutrophils % (Manual) (40-60) % Band Neutrophils % (0-10) % Lymphocytes % (Manual) (20-40) % Atypical Lymphs % % Monocytes % (Manual) (2-10) % Eosinophils % (Manual) (0.8-7.0) % Basophils % (Manual) (0.2-1.2) Platelet Estimate RBC Morph Comment Sodium (136-145) mEq/L Potassium (3.5-5.1) mEq/L Chloride (98-107) mEq/L Carbon Dioxide (21-32) mEq/L Anion Gap (5-15) BUN (7-18) mg/dL Creatinine (0.7-1.3) mg/dL Est Cr Clr Drug Dosing mL/min Estimated GFR (MDRD) (>60) mL/min BUN/Creatinine Ratio (14-18) Glucose (74-106) mg/dL Lactic Acid 0.8 (0.4-2.0) mmol/L Calcium (8.5-10.1) mg/dL Phosphorus (2.6-4.7) mg/dL Magnesium (1.8-2.4) mg/dl Total Bilirubin (0.2-1.0) mg/dL AST (15-37) U/L ALT (16-63) U/L Alkaline Phosphatase (46-116) U/L Total Protein (6.4-8.2) g/dl Albumin (3.4-5.0) g/dl Globulin gm/dL Albumin/Globulin Ratio (1-2) Urine Color Yellow (Yellow) Urine Appearance Clear (Clear) Urine pH 8.5 H (5.0-8.0) Ur Specific [place] 1.015 (1.005-1.030) Urine Protein 2+ H (Negative) Urine Glucose (UA) Negative (Negative) Urine Ketones 2+ H (Negative) Urine Occult Blood 1+ H (Negative) Urine Nitrite Negative (Negative) Urine Bilirubin Negative (Negative) Urine Urobilinogen 2.0 H (0.2-1.0) Ur Leukocyte Esterase Trace H (Negative) Urine RBC 10-20 H (0-5) /hpf Urine WBC 5-10 H (0-5) /hpf Ur Squamous Epith Cells 0-5 (0-5) /hpf Urine Bacteria Few (FEW) /hpf Urine Mucus Few (FEW) /hpf 01/21/19 Range/Units 04:24 WBC (4.23-9.07) K/mm3 RBC (4.63-6.08) M/mm3 Hgb (13.7-17.5) gm/dl Hct (40.1-51.0) % MCV (79.0-92.2) fl MCH (25.7-32.2) pg MCHC (32.2-35.5) g/dl RDW Std Deviation (35.1-43.9) fL Plt Count (163-337) K/mm3 MPV (9.4-12.3) fl Neutrophils % (Manual) (40-60) % Band Neutrophils % (0-10) % Lymphocytes % (Manual) (20-40) % Atypical Lymphs % % Monocytes % (Manual) (2-10) % Eosinophils % (Manual) (0.8-7.0) % Basophils % (Manual) (0.2-1.2) Platelet Estimate RBC Morph Comment Sodium 137 (136-145) mEq/L Potassium 4.1 (3.5-5.1) mEq/L Chloride 102 (98-107) mEq/L Carbon Dioxide 25 (21-32) mEq/L Anion Gap 14.1 (5-15) BUN 10 (7-18) mg/dL Creatinine 1.0 (0.7-1.3) mg/dL Est Cr Clr Drug Dosing 108.30 mL/min Estimated GFR (MDRD) > 60 (>60) mL/min BUN/Creatinine Ratio 10.0 L (14-18) Glucose 101 (74-106) mg/dL Lactic Acid (0.4-2.0) mmol/L Calcium 8.5 (8.5-10.1) mg/dL Phosphorus 3.0 (2.6-4.7) mg/dL Magnesium 1.3 L (1.8-2.4) mg/dl Total Bilirubin (0.2-1.0) mg/dL AST (15-37) U/L ALT (16-63) U/L Alkaline Phosphatase (46-116) U/L Total Protein (6.4-8.2) g/dl Albumin (3.4-5.0) g/dl Globulin gm/dL Albumin/Globulin Ratio (1-2) Urine Color (Yellow) Urine Appearance (Clear) Urine pH (5.0-8.0) Ur Specific [place] (1.005-1.030) Urine Protein (Negative) Urine Glucose (UA) (Negative) Urine Ketones (Negative) Urine Occult Blood (Negative) Urine Nitrite (Negative) Urine Bilirubin (Negative) Urine Urobilinogen (0.2-1.0) Ur Leukocyte Esterase (Negative) Urine RBC (0-5) /hpf Urine WBC (0-5) /hpf Ur Squamous Epith Cells (0-5) /hpf Urine Bacteria (FEW) /hpf Urine Mucus (FEW) /hpf Med Orders - Current: Current Medications Enoxaparin Sodium (Lovenox) 40 mg SUBCUT DAILY [facility] Last Admin: 01/20/19 20:58 Dose: 40 mg Hydromorphone HCl (Dilaudid) 0.2 mg IVPUSH Q4H PRN PRN Reason: Pain (moderate 4-6) Hydromorphone HCl (Dilaudid) 0.5 mg IVPUSH Q4H PRN PRN Reason: Pain (severe 7-10) Last Admin: 01/21/19 05:27 Dose: 0.5 mg Ceftriaxone Sodium 1 gm/ (Sodium Chloride) 100 mls @ 200 mls/hr IV Q24H [facility] Stop: 01/27/19 15:31 Last Admin: 01/20/19 15:38 Dose: 200 mls/hr Miscellaneous Information (Remove Patch) 0 ea TRDERM Q24H [facility] Nicotine (Habitrol) 14 mg TRDERM Q24H [facility] Last Admin: 01/20/19 19:48 Dose: Not Given Ondansetron HCl (Zofran) 4 mg IV Q4H PRN PRN Reason: Nausea/Vomiting Last Admin: 01/21/19 01:17 Dose: 4 mg Sodium Chloride (Saline Flush) 10 ml FLUSH ASDIRECTED [facility] Last Admin: 01/20/19 16:10 Dose: 10 ml Discontinued Medications Acetaminophen (Tylenol) 975 mg PO NOW ONE Stop: 01/20/19 11:11 Last Admin: 01/20/19 11:26 Dose: 975 mg Hydromorphone HCl (Dilaudid) 0.5 mg IVPUSH ONETIME ONE Stop: 01/20/19 08:07 Last Admin: 01/20/19 08:31 Dose: 0.5 mg Hydromorphone HCl (Dilaudid) 0.5 mg IVPUSH ONETIME ONE Stop: 01/20/19 11:07 Last Admin: 01/20/19 11:27 Dose: 0.5 mg Hydromorphone HCl (Dilaudid) 0.5 mg IVPUSH ONETIME ONE Stop: 01/20/19 14:54 Last Admin: 01/20/19 15:00 Dose: 0.5 mg Hydromorphone HCl (Dilaudid) 0.5 mg IVPUSH ONETIME ONE Stop: 01/20/19 20:32 Last Admin: 01/20/19 20:56 Dose: 0.5 mg Lactated Ringer's (Ringers, Lactated) 1,000 mls @ 999 mls/hr IV .BOLUS ONE Stop: 01/20/19 09:06 Last Admin: 01/20/19 08:35 Dose: 999 mls/hr Levofloxacin/Dextrose 750 mg/ (Premix) 150 mls @ 100 mls/hr IV ONETIME ONE Stop: 01/20/19 09:40 Last Admin: 01/20/19 09:19 Dose: 100 mls/hr Lactated Ringer's (Ringers, Lactated) 1,000 mls @ 999 mls/hr IV ONETIME ONE Stop: 01/20/19 10:40 Last Admin: 01/20/19 10:53 Dose: 999 mls/hr Lactated Ringer's (Ringers, Lactated) 1,000 mls @ 999 mls/hr IV .BOLUS ONE Stop: 01/20/19 11:12 Last Admin: 01/20/19 12:09 Dose: 999 mls/hr Ceftriaxone Sodium 1 gm/ (Sodium Chloride) 100 mls @ 200 mls/hr IV Q24H [facility] Stop: 01/27/19 15:31 Lactated Ringer's (Ringers, Lactated) 1,000 mls @ 250 mls/hr IV ASDIRECTED [facility] Stop: 01/22/19 18:29 Lactated Ringer's (Ringers, Lactated) 1,000 mls @ 250 mls/hr IV ASDIRECTED [facility] Stop: 01/22/19 19:59 Last Admin: 01/21/19 01:16 Dose: 250 mls/hr Morphine Sulfate (Morphine) 1 mg IVPUSH Q2H PRN PRN Reason: Pain (moderate 4-6) Stop: 01/21/19 14:33 Last Admin: 01/20/19 18:36 Dose: 1 mg Morphine Sulfate (Morphine) 2 mg IVPUSH Q2H PRN PRN Reason: Pain (severe 7-10) Last Admin: 01/20/19 19:43 Dose: 3 mg Morphine Sulfate (Morphine) 3 mg IVPUSH ONETIME ONE Stop: 01/20/19 19:31 Last Admin: 01/20/19 19:47 Dose: Not Given Morphine Sulfate (Morphine) Confirm Administered Dose 4 mg .ROUTE .STK-MED ONE Stop: 01/20/19 19:42 Last Admin: 01/20/19 19:47 Dose: Not Given Ondansetron HCl (Zofran) 4 mg IVPUSH ONETIME ONE Stop: 01/20/19 08:07 Last Admin: 01/20/19 08:29 Dose: 4 mg - Exam General: Alert, Oriented HEENT: Pupils Equal, Pupils Reactive, EOMI Neck: Supple, Trachea Midline, No JVD. No: Thyromegaly Lungs: Clear to Auscultation, Normal Respiratory Effort. No: Crackles, Rales, Rhonchi, Wheezing Cardiovascular: Regular Rate, Regular Rhythm, Tachycardia. No: Murmurs, Gallops GI/Abdominal Exam: Normal Bowel Sounds, Soft, Tender. No: Guarding, Rigid, Rebound Back Exam: CVA Tenderness (R) Extremities: Normal Inspection, No Pedal Edema, Normal Capillary Refill Skin: Warm, Moist Psy/Mental Status: Depressed. No: Normal Affect - Problem List & Annotations (1) Pyelonephritis, acute SNOMED Code(s): 15322477 Code(s): N10 - ACUTE PYELONEPHRITIS Status: Acute Current Visit: Yes (2) Sepsis SNOMED Code(s): 25147492 Code(s): A41.9 - SEPSIS, UNSPECIFIED ORGANISM Status: Acute Priority: High Current Visit: Yes Qualifiers: Sepsis acute organ dysfunction status: without acute organ dysfunction (3) Thrombocytopenia SNOMED Code(s): 721711129 Code(s): D69.6 - THROMBOCYTOPENIA, UNSPECIFIED Status: Acute Current Visit: Yes - Problem List Review Problem List Initiated/Reviewed/Updated: Yes - Plan Plan:: This is a 28 year old male without any past medical history who came to the ED complaining of worsening abdominal pain and fever for 24 hours. Pyelonephritis, improving Rocephin day 2 Pain improving Tmax 38.6 Lactic acid normal PLAN - F/U BL blood and urine cultures - Continue Rocephin - Dilaudid for pain management - Scheduled Zofran - Strain urine Sepsis on admission resolved Lactic acid negative CODE STATUS: FULL CODE PROPHYLAXIS - DVT: Enoxaparin - GI: not indicated DISPOSITION: Discharge home once cultures results are in and patient is afebrile for 48 hours.
[2019-01-21] MEDS ORDERED: Magnesium Sulfate/Water 4 GM in Premix Bag 1 BAG IV ONE (08:22)
[2019-01-21] MEDS: Enoxaparin 40 MG/0.4 ML Syringe SUBCUT SCH (09:31)
[2019-01-21] MEDS: cefTRIAXone 1 GM in Sodium Chloride 0.9% 100 ML IV SCH (15:20)
[2019-01-21] MEDS: Nicotine 14 MG/24 Hr Patch TRDERM SCH (15:20)
[2019-01-21] MEDS ORDERED: HYDROmorphone 1 MG/ML Syringe IVPUSH PRN (18:44)
[2019-01-21] MEDS: Ondansetron 4 MG/2 ML SDV IVPUSH SCH (20:54)
[2019-01-21] MEDS: Acetaminophen/HYDROcodone 325-10 MG Tab PO PRN (20:57)
[2019-01-22] MEDS: Lactated Ringers 1,000 ML IV SCH ×5 (00:27→21:51)
[2019-01-22] MEDS: Acetaminophen/HYDROcodone 325-10 MG Tab PO PRN ×5 (04:06→22:34)
[2019-01-22] MEDS: Ondansetron 4 MG/2 ML SDV IVPUSH SCH ×2 (04:17→10:54)
--- NOTE | 2019-01-22 09:13 | PCM.PN ---
- General Info Date of Service: 01/22/19 - Patient Data Vitals - Most Recent: Last Vital Signs Temp 37.0 C 01/22/19 04:17 Pulse 68 01/22/19 04:17 Resp 12 01/22/19 04:17 BP 127/67 01/22/19 04:17 Pulse Ox 97 01/22/19 04:17 Weight - Most Recent: 72.938 kg I&O - Last 24 Hours: Intake & Output 01/21/19 01/22/19 01/22/19 22:59 06:59 14:59 Intake Total 1335 1760 Output Total 2100 Balance -765 1760 Lab Results Last 24 Hours: Laboratory Results - last 24 hr 01/21/19 Range/Units 04:24 WBC 11.09 H (4.23-9.07) K/mm3 RBC 4.25 L (4.63-6.08) M/mm3 Hgb 12.5 L D (13.7-17.5) gm/dl Hct 36.0 L (40.1-51.0) % MCV 84.7 (79.0-92.2) fl MCH 29.4 (25.7-32.2) pg MCHC 34.7 (32.2-35.5) g/dl RDW Std Deviation 36.2 (35.1-43.9) fL Plt Count 80 L (163-337) K/mm3 MPV 10.8 (9.4-12.3) fl Neutrophils % (Manual) 60 (40-60) % Band Neutrophils % 14 H (0-10) % Lymphocytes % (Manual) 18 L (20-40) % Atypical Lymphs % 0 % Monocytes % (Manual) 8 (2-10) % Eosinophils % (Manual) 0 L (0.8-7.0) % Basophils % (Manual) 0 L (0.2-1.2) Platelet Estimate Marked dec Plt Morphology Comment Normal RBC Morph Comment Normal Percent Retic 0.56 (0.51-1.81) % Paulie Results Last 24 Hours: Microbiology 01/20/19 08:29 Aerobic Blood Culture - Preliminary Blood - Venous - Lab Draw NO GROWTH AFTER 2 DAYS Anaerobic Blood Culture - Preliminary NO GROWTH AFTER 2 DAYS 01/20/19 08:39 Aerobic Blood Culture - Preliminary Blood - Venous NO GROWTH AFTER 2 DAYS Anaerobic Blood Culture - Preliminary NO GROWTH AFTER 2 DAYS 01/20/19 09:18 Urine Culture - Final Urine, Clean Catch NO GROWTH AFTER 2 DAYS Med Orders - Current: Current Medications Hydrocodone Bitart/Acetaminophen ([place] 325-10 Mg) 1 tab PO Q4H PRN PRN Reason: Pain (mild 1-3) Hydrocodone Bitart/Acetaminophen ([place] 325-10 Mg) 2 tab PO Q4H PRN PRN Reason: Pain (moderate 4-6) Last Admin: 01/22/19 04:06 Dose: 2 tab Enoxaparin Sodium (Lovenox) 40 mg SUBCUT DAILY [facility] Last Admin: 01/21/19 09:31 Dose: 40 mg Hydromorphone HCl (Dilaudid) 1 mg IVPUSH Q4H PRN PRN Reason: Pain Ceftriaxone Sodium 1 gm/ (Sodium Chloride) 100 mls @ 200 mls/hr IV Q24H [facility] Stop: 01/27/19 15:31 Last Admin: 01/21/19 15:20 Dose: 200 mls/hr Lactated Ringer's (Ringers, Lactated) 1,000 mls @ 200 mls/hr IV ASDIRECTED [facility] Last Admin: 01/22/19 05:41 Dose: 200 mls/hr Miscellaneous Information (Remove Patch) 0 ea TRDERM Q24H [facility] Last Admin: 01/21/19 15:20 Dose: Not Given Nicotine (Habitrol) 14 mg TRDERM Q24H [facility] Last Admin: 01/21/19 15:20 Dose: Not Given Ondansetron HCl (Zofran) 4 mg IVPUSH Q6H [facility] Last Admin: 01/22/19 04:17 Dose: 4 mg Sodium Chloride (Saline Flush) 10 ml FLUSH ASDIRECTED [facility] Last Admin: 01/20/19 16:10 Dose: 10 ml Discontinued Medications Acetaminophen (Tylenol) 975 mg PO NOW ONE Stop: 01/20/19 11:11 Last Admin: 01/20/19 11:26 Dose: 975 mg Hydromorphone HCl (Dilaudid) 0.5 mg IVPUSH ONETIME ONE Stop: 01/20/19 08:07 Last Admin: 01/20/19 08:31 Dose: 0.5 mg Hydromorphone HCl (Dilaudid) 0.5 mg IVPUSH ONETIME ONE Stop: 01/20/19 11:07 Last Admin: 01/20/19 11:27 Dose: 0.5 mg Hydromorphone HCl (Dilaudid) 0.5 mg IVPUSH ONETIME ONE Stop: 01/20/19 14:54 Last Admin: 01/20/19 15:00 Dose: 0.5 mg Hydromorphone HCl (Dilaudid) 0.5 mg IVPUSH ONETIME ONE Stop: 01/20/19 20:32 Last Admin: 01/20/19 20:56 Dose: 0.5 mg Hydromorphone HCl (Dilaudid) 0.2 mg IVPUSH Q4H PRN PRN Reason: Pain (moderate 4-6) Hydromorphone HCl (Dilaudid) 0.5 mg IVPUSH Q4H PRN PRN Reason: Pain (severe 7-10) Last Admin: 01/21/19 17:39 Dose: 0.5 mg Lactated Ringer's (Ringers, Lactated) 1,000 mls @ 999 mls/hr IV .BOLUS ONE Stop: 01/20/19 09:06 Last Admin: 01/20/19 08:35 Dose: 999 mls/hr Levofloxacin/Dextrose 750 mg/ (Premix) 150 mls @ 100 mls/hr IV ONETIME ONE Stop: 01/20/19 09:40 Last Admin: 01/20/19 09:19 Dose: 100 mls/hr Lactated Ringer's (Ringers, Lactated) 1,000 mls @ 999 mls/hr IV ONETIME ONE Stop: 01/20/19 10:40 Last Admin: 01/20/19 10:53 Dose: 999 mls/hr Lactated Ringer's (Ringers, Lactated) 1,000 mls @ 999 mls/hr IV .BOLUS ONE Stop: 01/20/19 11:12 Last Admin: 01/20/19 12:09 Dose: 999 mls/hr Ceftriaxone Sodium 1 gm/ (Sodium Chloride) 100 mls @ 200 mls/hr IV Q24H [facility] Stop: 01/27/19 15:31 Lactated Ringer's (Ringers, Lactated) 1,000 mls @ 250 mls/hr IV ASDIRECTED [facility] Stop: 01/22/19 18:29 Lactated Ringer's (Ringers, Lactated) 1,000 mls @ 250 mls/hr IV ASDIRECTED [facility] Stop: 01/22/19 19:59 Last Admin: 01/21/19 01:16 Dose: 250 mls/hr Magnesium Sulfate 4 gm/ Premix 50 mls @ 12.5 mls/hr IV ONETIME ONE Stop: 01/21/19 12:21 Last Admin: 01/21/19 09:31 Dose: 12.5 mls/hr Lactated Ringer's (Ringers, Lactated) 1,000 mls @ 200 mls/hr IV ASDIRECTED [facility] Last Admin: 01/21/19 19:30 Dose: 125 mls/hr Morphine Sulfate (Morphine) 1 mg IVPUSH Q2H PRN PRN Reason: Pain (moderate 4-6) Stop: 01/21/19 14:33 Last Admin: 01/20/19 18:36 Dose: 1 mg Morphine Sulfate (Morphine) 2 mg IVPUSH Q2H PRN PRN Reason: Pain (severe 7-10) Last Admin: 01/20/19 19:43 Dose: 3 mg Morphine Sulfate (Morphine) 3 mg IVPUSH ONETIME ONE Stop: 01/20/19 19:31 Last Admin: 01/20/19 19:47 Dose: Not Given Morphine Sulfate (Morphine) Confirm Administered Dose 4 mg .ROUTE .STK-MED ONE Stop: 01/20/19 19:42 Last Admin: 01/20/19 19:47 Dose: Not Given Ondansetron HCl (Zofran) 4 mg IVPUSH ONETIME ONE Stop: 01/20/19 08:07 Last Admin: 01/20/19 08:29 Dose: 4 mg Ondansetron HCl (Zofran) 4 mg IV Q4H PRN PRN Reason: Nausea/Vomiting Last Admin: 01/21/19 17:31 Dose: 4 mg - Problem List & Annotations (1) Pyelonephritis, acute SNOMED Code(s): 19141155 Code(s): N10 - ACUTE PYELONEPHRITIS Status: Acute Current Visit: Yes (2) Sepsis SNOMED Code(s): 16517954 Code(s): A41.9 - SEPSIS, UNSPECIFIED ORGANISM Status: Acute Priority: High Current Visit: Yes Qualifiers: Sepsis acute organ dysfunction status: without acute organ dysfunction (3) Thrombocytopenia SNOMED Code(s): 488756396 Code(s): D69.6 - THROMBOCYTOPENIA, UNSPECIFIED Status: Acute Current Visit: Yes - Problem List Review Problem List Initiated/Reviewed/Updated: Yes - Plan Plan:: This is a 28 year old male without any past medical history who came to the ED complaining of worsening abdominal pain and fever for 24 hours. Pyelonephritis, improving Rocephin day 4 Pain controlled, Tmax 99.7 No hematuria or stones Blood and urine cultures negative so far Last fever spike 10/4 at 11AM PLAN - Last dose of IV Rocephin today, transition to Augmentin in the AM - Pain control with Sod - Continue to strain urine Thrombocytopenia Improving PLAN - Repeat CBC in AM Sepsis on admission resolved Lactic acid negative CODE STATUS: FULL CODE PROPHYLAXIS - DVT: Enoxaparin - GI: not indicated DISPOSITION: Discharge home once cultures results are in and patient is afebrile for 48 hours.
[2019-01-22] MEDS: Enoxaparin 40 MG/0.4 ML Syringe SUBCUT SCH (09:45)
[2019-01-22] MEDS: cefTRIAXone 1 GM in Sodium Chloride 0.9% 100 ML IV SCH (15:20)
[2019-01-22] MEDS: Nicotine 14 MG/24 Hr Patch TRDERM SCH (15:26)
[2019-01-22] MEDS: Ondansetron 4 MG/2 ML SDV IVPUSH PRN (18:41)
[2019-01-23] MEDS: Lactated Ringers 1,000 ML IV SCH ×2 (02:33→06:57)
[2019-01-23] MEDS: Acetaminophen/HYDROcodone 325-10 MG Tab PO PRN ×3 (02:33→10:44)
[2019-01-23] MEDS: Ondansetron 4 MG/2 ML SDV IVPUSH PRN ×2 (02:46→10:21)
[2019-01-23] MEDS: Enoxaparin 40 MG/0.4 ML Syringe SUBCUT SCH (07:59)
[2019-01-23] MEDS ORDERED: Amoxicillin/Clavulanate K 875-125 MG Tab PO SCH (09:00)
--- NOTE | 2019-01-23 12:11 | PCM.DCSUM1 ---
Discharge Summary - Discharge Data Discharge Disposition: Home, Self-Care 01 Condition: Good - Referral to Home Health Primary Care Physician: PCP None - Discharge Diagnosis/Problem(s) (1) Pyelonephritis, acute SNOMED Code(s): 95860885 ICD Code: N10 - ACUTE PYELONEPHRITIS Status: Acute Current Visit: Yes (2) Sepsis SNOMED Code(s): 21990828 ICD Code: A41.9 - SEPSIS, UNSPECIFIED ORGANISM Status: Acute Priority: High Current Visit: Yes Qualifiers: Sepsis acute organ dysfunction status: without acute organ dysfunction (3) Thrombocytopenia SNOMED Code(s): 877706839 ICD Code: D69.6 - THROMBOCYTOPENIA, UNSPECIFIED Status: Acute Current Visit: Yes - Discharge Plan Home Medications: Home Meds Cephalexin [Keflex] 500 mg PO BID #20 capsule 01/19/19 [Rx] Hydrocodone/Acetaminophen [Hydrocodon-Acetaminophen 5-325] 1 - 2 each PO Q6HR PRN #20 tablet 01/19/19 [Rx] Ibuprofen 400 - 600 mg PO Q6H PRN 01/20/19 [History] Patient Handouts: Steps to Quit Smoking Referrals: PCP,None [Primary Care Provider] - - Patient Data Vitals - Most Recent: Last Vital Signs Temp 36.9 C 01/23/19 08:05 Pulse 79 01/23/19 08:05 Resp 16 01/23/19 08:05 BP 135/81 01/23/19 08:05 Pulse Ox 95 01/23/19 08:05 Weight - Most Recent: 72.847 kg I&O - Last 24 hours: Intake & Output 01/22/19 01/23/19 01/23/19 22:59 06:59 14:59 Intake Total 3300 800 3199 Output Total 1600 3200 Balance 1700 -2400 3199 [place] Results - Last 24 hrs: Microbiology 01/20/19 08:29 Aerobic Blood Culture - Preliminary Blood - Venous - Lab Draw NO GROWTH AFTER 3 DAYS Anaerobic Blood Culture - Preliminary NO GROWTH AFTER 3 DAYS 01/20/19 08:39 Aerobic Blood Culture - Preliminary Blood - Venous NO GROWTH AFTER 3 DAYS Anaerobic Blood Culture - Preliminary NO GROWTH AFTER 3 DAYS 01/20/19 09:18 Urine Culture - Final Urine, Clean Catch NO GROWTH AFTER 2 DAYS Med Orders - Current: Current Medications Hydrocodone Bitart/Acetaminophen ([place] 325-10 Mg) 1 tab PO Q4H PRN PRN Reason: Pain (mild 1-3) Last Admin: 01/23/19 06:57 Dose: 1 tab Hydrocodone Bitart/Acetaminophen ([place] 325-10 Mg) 2 tab PO Q4H PRN PRN Reason: Pain (moderate 4-6) Last Admin: 01/23/19 10:44 Dose: 2 tab Amoxicillin/Clavulanate Potassium (Augmentin 875 Mg/125 Mg) 1 tab PO Q12HR [facility] Last Admin: 01/23/19 07:59 Dose: 1 tab Enoxaparin Sodium (Lovenox) 40 mg SUBCUT DAILY [facility] Last Admin: 01/23/19 07:59 Dose: 40 mg Hydromorphone HCl (Dilaudid) 1 mg IVPUSH Q4H PRN PRN Reason: Pain Miscellaneous Information (Remove Patch) 0 ea TRDERM Q24H [facility] Last Admin: 01/22/19 15:26 Dose: Not Given Nicotine (Habitrol) 14 mg TRDERM Q24H [facility] Last Admin: 01/22/19 15:26 Dose: Not Given Ondansetron HCl (Zofran) 4 mg IVPUSH Q6H PRN PRN Reason: Nausea/Vomiting Last Admin: 01/23/19 10:21 Dose: 4 mg Sodium Chloride (Saline Flush) 10 ml FLUSH ASDIRECTED [facility] Last Admin: 01/20/19 16:10 Dose: 10 ml Discontinued Medications Acetaminophen (Tylenol) 975 mg PO NOW ONE Stop: 01/20/19 11:11 Last Admin: 01/20/19 11:26 Dose: 975 mg Hydromorphone HCl (Dilaudid) 0.5 mg IVPUSH ONETIME ONE Stop: 01/20/19 08:07 Last Admin: 01/20/19 08:31 Dose: 0.5 mg Hydromorphone HCl (Dilaudid) 0.5 mg IVPUSH ONETIME ONE Stop: 01/20/19 11:07 Last Admin: 01/20/19 11:27 Dose: 0.5 mg Hydromorphone HCl (Dilaudid) 0.5 mg IVPUSH ONETIME ONE Stop: 01/20/19 14:54 Last Admin: 01/20/19 15:00 Dose: 0.5 mg Hydromorphone HCl (Dilaudid) 0.5 mg IVPUSH ONETIME ONE Stop: 01/20/19 20:32 Last Admin: 01/20/19 20:56 Dose: 0.5 mg Hydromorphone HCl (Dilaudid) 0.2 mg IVPUSH Q4H PRN PRN Reason: Pain (moderate 4-6) Hydromorphone HCl (Dilaudid) 0.5 mg IVPUSH Q4H PRN PRN Reason: Pain (severe 7-10) Last Admin: 01/21/19 17:39 Dose: 0.5 mg Lactated Ringer's (Ringers, Lactated) 1,000 mls @ 999 mls/hr IV .BOLUS ONE Stop: 01/20/19 09:06 Last Admin: 01/20/19 08:35 Dose: 999 mls/hr Levofloxacin/Dextrose 750 mg/ (Premix) 150 mls @ 100 mls/hr IV ONETIME ONE Stop: 01/20/19 09:40 Last Admin: 01/20/19 09:19 Dose: 100 mls/hr Lactated Ringer's (Ringers, Lactated) 1,000 mls @ 999 mls/hr IV ONETIME ONE Stop: 01/20/19 10:40 Last Admin: 01/20/19 10:53 Dose: 999 mls/hr Lactated Ringer's (Ringers, Lactated) 1,000 mls @ 999 mls/hr IV .BOLUS ONE Stop: 01/20/19 11:12 Last Admin: 01/20/19 12:09 Dose: 999 mls/hr Ceftriaxone Sodium 1 gm/ (Sodium Chloride) 100 mls @ 200 mls/hr IV Q24H [facility] Stop: 01/27/19 15:31 Lactated Ringer's (Ringers, Lactated) 1,000 mls @ 250 mls/hr IV ASDIRECTED [facility] Stop: 01/22/19 18:29 Lactated Ringer's (Ringers, Lactated) 1,000 mls @ 250 mls/hr IV ASDIRECTED [facility] Stop: 01/22/19 19:59 Last Admin: 01/21/19 01:16 Dose: 250 mls/hr Ceftriaxone Sodium 1 gm/ (Sodium Chloride) 100 mls @ 200 mls/hr IV Q24H [facility] Stop: 01/22/19 16:00 Last Admin: 01/22/19 15:20 Dose: 200 mls/hr Magnesium Sulfate 4 gm/ Premix 50 mls @ 12.5 mls/hr IV ONETIME ONE Stop: 01/21/19 12:21 Last Admin: 01/21/19 09:31 Dose: 12.5 mls/hr Lactated Ringer's (Ringers, Lactated) 1,000 mls @ 200 mls/hr IV ASDIRECTED [facility] Last Admin: 01/21/19 19:30 Dose: 125 mls/hr Lactated Ringer's (Ringers, Lactated) 1,000 mls @ 200 mls/hr IV ASDIRECTED [facility] Last Admin: 01/23/19 06:57 Dose: 200 mls/hr Morphine Sulfate (Morphine) 1 mg IVPUSH Q2H PRN PRN Reason: Pain (moderate 4-6) Stop: 01/21/19 14:33 Last Admin: 01/20/19 18:36 Dose: 1 mg Morphine Sulfate (Morphine) 2 mg IVPUSH Q2H PRN PRN Reason: Pain (severe 7-10) Last Admin: 01/20/19 19:43 Dose: 3 mg Morphine Sulfate (Morphine) 3 mg IVPUSH ONETIME ONE Stop: 01/20/19 19:31 Last Admin: 01/20/19 19:47 Dose: Not Given Morphine Sulfate (Morphine) Confirm Administered Dose 4 mg .ROUTE .STK-MED ONE Stop: 01/20/19 19:42 Last Admin: 01/20/19 19:47 Dose: Not Given Ondansetron HCl (Zofran) 4 mg IVPUSH ONETIME ONE Stop: 01/20/19 08:07 Last Admin: 01/20/19 08:29 Dose: 4 mg Ondansetron HCl (Zofran) 4 mg IV Q4H PRN PRN Reason: Nausea/Vomiting Last Admin: 01/21/19 17:31 Dose: 4 mg Ondansetron HCl (Zofran) 4 mg IVPUSH Q6H [facility] Last Admin: 01/22/19 10:54 Dose: Not Given
== END 2019-01-23 14:00 | disposition home or self-care (01) | DRG 872 ==
LOC: JD.ED 07:46 → JD.MS 12:13
PROVIDERS: ADMIT Internal Medicine; ATTEND Internal Medicine
DX: A41.9 Sepsis, unspecified organism (principal); N10 Acute pyelonephritis; D69.6 Thrombocytopenia, unspecified; F17.210 Nicotine dependence, cigarettes, uncomplicated
CPT/HCPCS: 36415; 71045; 71045-26; 80048; 80053; 81001; 83605; 83735; 84100; 85007; 85025; 85027; 85045; 87040; 87086; 93005; 93010; 96361; 96365; 96366; 96375; 96376; 99285; 99285-25; A9270-GY; J0696; J1170; J1650; J1956; J2270; J2405; J3475; J7030; J7120